=== PATIENT | female | born 1955 | race Caucasian/White ===

== ENCOUNTER → 2017-06-03 | Outpatient (CLI) | payer BC ==
--- NOTE | 2017-06-05 09:19 | MM ---
Reason for exam: screening (asymptomatic). Last mammogram was performed 1 year and 11 months ago. History: Patient is postmenopausal. Family history of premenopausal breast cancer in mother at age 50. Physical Findings: A clinical breast exam by your physician is recommended on an annual basis and results should be correlated with mammographic findings. MG 3D Screening Mammo W/Cad Bilateral CC and MLO view(s) were taken. Prior study comparison: June 21, 2015, bilateral MG screening mammo w CAD. April 16, 2014, bilateral MG screening mammo w CAD. There are scattered fibroglandular densities. No suspicious abnormality. No significant changes when compared with prior studies. ASSESSMENT: Negative, BI-RAD 1 RECOMMENDATION: Routine screening mammogram of both breasts in 1 year.
== END | disposition home or self-care (01) ==
LOC: RADMAMWWP 14:37
PROVIDERS: ATTEND Obstetrics & Gynecology
DX: Z12.31 Encounter for screening mammogram for malignant neoplasm of breast (principal); Z80.3 Family history of malignant neoplasm of breast
CPT/HCPCS: 77063; G0202

== ENCOUNTER → 2019-06-17 | Outpatient (CLI) | payer MEDICARE ==
--- NOTE | 2019-06-17 14:31 | BD ---
EXAMINATION TYPE: Axial Bone Density DATE OF EXAM: 06/17/2019 COMPARISON: 2010 CLINICAL HISTORY: M [age] Height: 5 FT 1 IN Weight: 118 FRAX RISK QUESTIONS: Alcohol (3 or more units per day): NO Family History (Parent hip fracture): NO Glucocorticoids (More than 3mos): NO (Ex: prednisone, prednisolone, methylprednisolone, dexamethasone, and hydrocortisone). History of Fracture in Adulthood: NO Secondary Osteoporosis: 1. Type 1 Diabetes: NO 2. Hyperthyroidism: NO 3. Menopause before 45: NO 4. Malnutrition: NO 5. Chronic liver disease: NO Rheumatoid Arthritis: NO Current Tobacco Use: NO RISK FACTORS HISTORY OF: Family History of Osteoporosis: NO Active: YES Postmenopausal woman: AGE 53 MEDICATIONS: Osteoporosis Medications: YES Which medication: FOSAMAX How Lon-2 YEARS Additional Medications: FOSAMAX, BLOOD PRESSURE MEDS Additional History: EXAM MEASUREMENTS: Bone mineral densitometry was performed using the [facility]. Bone mineral density as measured about the Lumbar spine is: ----- L1-L4(G/cm2): 0.884 T Score Values are as follows: ----- L2: -3.3 ----- L3: -3.4 ----- L4: -1.1 ----- L1-L4: -2.5 Bone mineral density has: DECREASED -8.7 % since study of: 2010 Bone mineral density about the R hip (g/cm2): 0.724 Bone mineral density about the L hip (g/cm2): 0.723 T Score values are as follows: -----R Neck: -2.3 -----L Neck: -2.3 -----R Total: -1.9 -----L Total: -1.9 Bone mineral density has: DECREASED -8.6 % since study of: 2010 IMPRESSION: Osteoporosis (T Score less than -2.5) with respect to the lumbar spine. There is increased fracture risk and therapy is usually indicated based on age. Re-Screen 1-2 years. NOTE: T-SCORE=SD OF THE YOUNG ADULT MEAN.
--- NOTE | 2019-06-19 12:17 | MM ---
Reason for exam: screening (asymptomatic). Last mammogram was performed 2 years ago. History: Patient is postmenopausal. Family history of premenopausal breast cancer in mother at age 50. Physical Findings: A clinical breast exam by your physician is recommended on an annual basis and results should be correlated with mammographic findings. MG 3D Screening Mammo W/Cad Bilateral CC and MLO view(s) were taken. Prior study comparison: June 03, 2017, bilateral MG 3d screening mammo w/cad. June 21, 2015, bilateral MG screening mammo w CAD. There are scattered fibroglandular densities. No significant changes when compared with prior studies. ASSESSMENT: Benign, BI-RAD 2 RECOMMENDATION: Routine screening mammogram of both breasts in 1 year.
== END | disposition home or self-care (01) ==
LOC: RADMAMWWP 11:49
PROVIDERS: ATTEND Internal Medicine Geriatric Medicine
DX: Z12.31 Encounter for screening mammogram for malignant neoplasm of breast (principal); M81.0 Age-related osteoporosis without current pathological fracture
CPT/HCPCS: 77063; 77067; 77080

== ENCOUNTER → 2020-10-04 | Outpatient (CLI) | payer MEDICARE ==
[2020-10-04 08:50] VITALS: BP 138/85; PULSE 71; RESP 18; TEMP 98.1
--- NOTE | 2020-10-04 09:47 | P.HPOB ---
History of Present Illness H&P Date: 10/04/20 Chief Complaint: The patient is here for her routine gynecologic exam. This is a 65-year-old with an LMP of 2009. The patient is here to establish with this office. It is been about 2-1/2 years since her last pelvic exam. She states she still does have some hot flashes but are not very bothersome. She denies any postmenopausal bleeding. She describes 3 episodes over the past year where she had pelvic pressure and the first time this happened in November 2019 she thought she may have had a UTI. She was treated for a UTI at an urgent care clinic at that time. She again developed some pressure in March 2020 and again 2 weeks ago. These episodes last for hours, but then seem to go away. She denies bladder pressure at this time. The episodes do not seem to be associated with activity and in fact tends to wake her up at night. Ring these episodes she denies dysuria or back pain. Review of Systems Weight has been stable. She denies respiratory, cardiac and G.I. problems. She denies maltreatment or problems with falling. : she denies any significant problems with urinary leakage. Also see HPI. Past Medical History Past Medical History: Hyperlipidemia Additional Past Medical History / Comment(s): Epiretinal eye disease. Osteoporosis(alendronate since 2018). Past VENDOR MANAGER history: HPV on a Pap smear in many years ago. No history of cervical dysplasia. History of Any Multi-Drug Resistant Organisms: None Reported Past Surgical History: Section Additional Past Surgical History / Comment(s): section 1. Eye surgery. Colonoscopy 2018(next after 10yr). Past Psychological History: No Psychological Hx Reported Smoking Status: Never smoker Past Alcohol Use History: Occasional (2 per month) Past Drug Use History: None Reported Additional History: She is . Her was diagnosed with renal cancer. - Past Family History Mother Family Medical History: AFIB, Cancer, Hypertension Additional Family Medical History / Comment(s): Breast cancer Father Additional Family Medical History / Comment(s): Benign pituitary gland tumor. Medications and Allergies Home Medications Medication Instructions Recorded Confirmed Type Alendronate Sodium [Fosamax] 70 mg PO WEEKLY 10/04/20 10/04/20 History Calcium Carbonate [Calcium] 600 mg PO DAILY 10/04/20 10/04/20 History Cranberry Fruit Extract [Cranberry] 200 mg PO DAILY 10/04/20 10/04/20 History Lutein 20 mg PO DAILY 10/04/20 10/04/20 History Menopautonic 1 tab PO DAILY 10/04/20 10/04/20 History Rosuvastatin [Crestor] 5 mg PO DAILY 10/04/20 10/04/20 History Ubiquinol [Co-Veratrol] 50 mg PO DAILY 10/04/20 10/04/20 History Allergies Allergy/AdvReac Type Severity Reaction Status Date / Time cephalexin [From Keflex] AdvReac Rash/Hives Unverified 10/04/20 08:42 sulfamethoxazole AdvReac Rash/Hives Unverified 10/04/20 08:42 [From Bactrim] trimethoprim [From Bactrim] AdvReac Rash/Hives Unverified 10/04/20 08:42 Exam Vital Signs Temp Pulse Resp BP Pulse Ox 10/04/20 08:47 98.1 F 71 18 138/85 100 Intake and Output 10/03/20 10/04/20 10/04/20 22:59 06:59 14:59 Other: Weight 53.977 kg Height 5 foot 1-1/2 inch, weight 119 pounds, BMI 22.1. This is a well-developed well-nourished white female who is alert and oriented times 3 in no acute distress. HEENT: Within normal limits. NECK: Supple without mass or thyromegaly. CHEST AND LUNGS: Clear to auscultation. HEART: Regular rate and rhythm. BREASTS: Are without mass or discharge. AXILLARY EXAM: Negative for adenopathy. BACK: Negative for CVA tenderness. ABDOMEN: Soft, nontender, without palpable masses. PELVIC EXAM: Normal external genitalia with mild atrophy. Cervix and vagina appear normal mild atrophy. There is no unusual discharge. There is no evidence of prolapse. The uterus is midposition, nongravid size and nontender. There are no palpable adnexal masses or tenderness. RECTAL EXAM: Rectovaginal exam is negative for mass or tenderness and is negative for occult blood. EXTREMITIES: Nontender. IMPRESSION: 1. 65-year-old menopausal female with normal gynecologic exam. 2. Infrequent episodes of bladder pressure which are brief and there are no current symptoms or significant physical findings at this time. Differential diagnosis will include bladder spasms, GI spasms, and less likely uterine fibroid or prolapse. 3. History of osteoporosis on Fosamax 2 years. PLAN: 1. Pap smear was performed. We will obtain records from Dr. Loera office for the last 10 years of Pap smears. We will then consider discontinuing Pap smears. 2. Self breast awareness was discussed with the patient. 3. Screening mammogram is scheduled for tomorrow. The order slip was given to the patient for this. 4. Osteoporosis prevention was discussed. I have stressed the importance of adequate calcium, vitamin D and regular exercise. Recommended amounts of calcium and vitamin D were also discussed. Bone density testing is scheduled for tomorrow and the order slip was given to the patient for this. 5. Since she is not currently having any bladder symptoms at this time, we will follow this conservatively. She was instructed to call she's having recurrent symptoms and at that time we can consider further evaluation and we can consider pelvic ultrasound at that time. 6. She did receive her flu vaccination last fall and has completed her Covid vaccination series. 7. The patient was advised to return in 1-2 years for her well woman examination and as needed.
== END ==
LOC: WWCWWP 08:24
PROVIDERS: ATTEND Obstetrics & Gynecology
DX: Z01.419 Encounter for gynecological examination (general) (routine) without abnormal findings (principal); E78.5 Hyperlipidemia, unspecified; M81.0 Age-related osteoporosis without current pathological fracture

== ENCOUNTER → 2020-10-05 | Outpatient (CLI) | payer MEDICARE ==
--- NOTE | 2020-10-06 07:53 | BD ---
EXAMINATION TYPE: Axial Bone Density DATE OF EXAM: 10/05/2020 COMPARISON: NONE CLINICAL HISTORY: Height: 5 FT 1 1/2 IN Weight: 119 FRAX RISK QUESTIONS: Alcohol (3 or more units per day): NO Family History (Parent hip fracture): NO Glucocorticoids (More than 3mos): NO (Ex: prednisone, prednisolone, methylprednisolone, dexamethasone, and hydrocortisone). History of Fracture in Adulthood: NO Secondary Osteoporosis: 1. Type 1 Diabetes: NO 2. Hyperthyroidism: NO 3. Menopause before 45: NO 4. Malnutrition: NO 5. Chronic liver disease: NO Rheumatoid Arthritis: NO Current Tobacco Use: NO RISK FACTORS HISTORY OF: Surgery to Spine/Hip(right/left)/Wrist (right/left): NO Family History of Osteoporosis: NO Active: YES Diet low in dairy products/other sources of calcium: NO Postmenopausal woman: AGE 53 Take estrogen and/or progesterone medications: NO Lost more than 2 inches in height since high school: NO MEDICATIONS: Osteoporosis Medications: YES Which medication: FOSAMAX How Lon-3 YEARS Additional Medications: FOSAMAX, STATIN, Additional History: EXAM MEASUREMENTS: Bone mineral densitometry was performed using the [employer]. Bone mineral density as measured about the Lumbar spine is: ----- L1-L4(G/cm2): 0.827 T Score Values are as follows: ----- L2: -3.3 ----- L3: -3.2 ----- L4: -2.5 ----- L1-L4: -2.9 Bone mineral density has: DECREASED -6.5 % since study of: 2018 Bone mineral density about the R hip (g/cm2): 0.674 Bone mineral density about the L hip (g/cm2): 0.698 T Score values are as follows: -----R Neck: -2.6 -----L Neck: -2.4 -----R Total: -2.0 -----L Total: -1.9 Bone mineral density has: DECREASED -1.3 % since study of: 2019 IMPRESSION: Osteoporosis NOTE: T-SCORE=SD OF THE YOUNG ADULT MEAN.
--- NOTE | 2020-10-06 14:29 | MM ---
Reason for exam: screening (asymptomatic). Last mammogram was performed 1 year and 4 months ago. History: Patient is postmenopausal. Family history of premenopausal breast cancer in mother at age 50. Physical Findings: A clinical breast exam by your physician is recommended on an annual basis and results should be correlated with mammographic findings. MG 3D Screening Mammo W/Cad Bilateral CC and MLO view(s) were taken. Prior study comparison: June 17, 2019, bilateral MG 3d screening mammo w/cad. June 03, 2017, bilateral MG 3d screening mammo w/cad. There are scattered fibroglandular densities. No significant changes when compared with prior studies. ASSESSMENT: Benign, BI-RAD 2 RECOMMENDATION: Routine screening mammogram of both breasts in 1 year.
== END | disposition home or self-care (01) ==
LOC: RADMAMWWP 14:56
PROVIDERS: ATTEND Internal Medicine Geriatric Medicine
DX: Z12.31 Encounter for screening mammogram for malignant neoplasm of breast (principal); M81.0 Age-related osteoporosis without current pathological fracture
CPT/HCPCS: 77063; 77067; 77080

== ENCOUNTER → 2022-03-31 | Outpatient (CLI) | payer MEDICARE ==
[2022-03-31 16:12] LABS: ALT 17 U/L (8-44); AST 26 U/L (13-35); African American GFR (CKD) 75.6 (60.0-200.0); Albumin 4.5 g/dL (3.8-4.9); Alkaline Phosphatase 77 U/L (41-126); BUN/Creat Ratio 16.78 Ratio (12.00-20.00); Blood Urea Nitrogen 15.1 mg/dL (9.0-27.0); Calcium 9.2 mg/dL (8.7-10.3); Carbon Dioxide 26.7 mmol/L (20.0-27.5); Chloride 99 mmol/L (96-109); Chol/HDL Ratio 3.45 Ratio; Globulin 2.5 g/dL (1.6-3.3); Glucose 85 mg/dL (70-110); LDL Cholesterol,Calculated 111.5 mg/dL (0.0-131.0); Non-African American GFR(CKD) 65.2 (60.0-200.0); Potassium 4.7 mmol/L (3.5-5.5); Sodium 135 mmol/L (135-145); VLDL Calculation 18.36 mg/dL (5.00-40.00)
== END | disposition home or self-care (01) ==
LOC: LABWHC1 08:27
PROVIDERS: ATTEND Internal Medicine Geriatric Medicine
DX: E78.2 Mixed hyperlipidemia (principal); R79.9 Abnormal finding of blood chemistry, unspecified
CPT/HCPCS: 36415; 80053; 80061; 83036

== ENCOUNTER → 2022-10-18 | Outpatient (CLI) | payer MEDICARE ==
--- NOTE | 2022-10-18 17:15 | BD ---
EXAMINATION TYPE: Axial Bone Density DATE OF EXAM: 10/18/2022 CLINICAL HISTORY: 67 years old Female. ICD-10 CODE: M81.0 AGE-RELATED OSTEOPOROSIS W/O CURRENT PATHO LO Height: 61.25 Weight: 123 FRAX RISK QUESTIONS: Alcohol (3 or more units per day): no Family History (Parent hip fracture): no Glucocorticoids (More than 3mos): no History of Fracture in Adulthood: no Secondary Osteoporosis: 1. Type 1 Diabetes: no 2. Hyperthyroidism: no 3. Menopause before 45: no 4. Malnutrition: no 5. Chronic liver disease: no Rheumatoid Arthritis: no Current Tobacco Use: no RISK FACTORS HISTORY OF: Hip Fracture (Right/Left): no Spine Fracture: no History of Wrist Fracture: no Surgery to Spine/Hip(right/left)/Wrist (right/left): no Family History of Osteoporosis: no Active: yes Diet low in dairy products/other sources of calcium: no Postmenopausal woman: yes Take estrogen and/or progesterone medications: no Lost more than 2 inches in height since high school: yes Frequent falls: no Poor Health: no Hyperparathyroidism: no Adrenal Insufficiency: no MEDICATIONS: Prednisone or other steroids: no Thyroid Medications:no Osteoporosis Medications: fosamax How Long: past 2 years Additional Medications: Cholesterol Meds, Calcium, Vit D, Additional History: EXAM MEASUREMENTS: Bone mineral densitometry was performed using the [employer] [facility]. Bone mineral density as measured about the Lumbar spine is: ----- L1-L4(G/cm2): 0.882 T Score Values are as follows: ----- L1: -2.9 ----- L2: -3.6 ----- L3: -1.2 ----- L4: -2.4 ----- L1-L4: -3.0 Z Score Values are as follows: ----- L1: -0.9 ----- L2: -1.6 ----- L3: -1.2 ----- L4: -0.4 ----- L1-L4: -1.0 Bone mineral density has: decreased -0.6 % since study of: 10/05/2020 Bone mineral density about the R hip (g/cm2): 0.754 Bone mineral density about the L hip (g/cm2): 0.774 T Score values are as follows: -----R Neck: -2.5 -----L Neck: -2.4 -----R Total: -2.0 -----L Total: -1.9 Z Score values are as follows: -----R Neck: -0.6 -----L Neck: -0.5 -----R Total: -0.4 -----L Total: -0.2 Bone mineral density has: increased 0.3 % since study of: 10/05/2020 FRAX%s: The graph provided illustrates a 13.8% chance for a major osteoporotic fx and a 3.5% chance f or the hips probability for fx in 10 years time. IMPRESSION: Osteoporosis (T Score less than -2.5). There is increased fracture risk and therapy is usually indicated based on age. Re-Screen 1-2 years. NOTE: T-SCORE=SD OF THE YOUNG ADULT MEAN.
== END | disposition home or self-care (01) ==
LOC: RADBDWWP 14:25
PROVIDERS: ATTEND Internal Medicine Geriatric Medicine
DX: M81.0 Age-related osteoporosis without current pathological fracture (principal); M85.89 Other specified disorders of bone density and structure, multiple sites
CPT/HCPCS: 77080

== ENCOUNTER → 2023-03-21 | Outpatient (CLI) | payer MEDICARE ==
--- NOTE | 2023-03-21 14:25 | XR ---
EXAM TYPE: LUMBAR SPINE X RAY SERIES COMPARISON: NONE HISTORY: Pain TECHNIQUE: 3 views are submitted. FINDINGS: Alignment is anatomic. The pedicles are intact. The transverse processes are intact. There is diff use osteopenia with multilevel moderate to severe degenerative disc disease most marked at L4-5 and L 5-S1. Severe facet arthropathy L4-5 and L5-S1 with bilateral foraminal impingement suspected. Grade 1 spondylolisthesis L4-L5. IMPRESSION: 1. Multilevel moderate to severe degenerative disc disease and facet arthropathy most marked at L4-5 and L5-S1 with suspected foraminal encroachment. Grade 1 anterolisthesis L4-L5.
--- NOTE | 2023-03-21 15:14 | XR ---
EXAMINATION TYPE: XR Hip Bilateral and AP pelvis DATE OF EXAM: 03/21/2023 COMPARISON: NONE HISTORY: Pain TECHNIQUE: A single AP view of the pelvis is obtained. Two views of the bilateral hip are obtained. FINDINGS: There is no acute fracture/dislocation evident in the pelvis. The sacroiliac joints and bilateral SI joint arthropathy.. The overlying soft tissue appears unremarkable. Vascular calcificat ions are noted. Two views of bilateral hip show no acute fracture or dislocation. No focal lytic or sclerotic lesion seen in the proximal bilateral femur. The overlying soft tissue is unremarkable. Mild narrowing of the joint space with hypertrophic changes in the acetabulum. IMPRESSION: 1. There is no acute fracture or dislocation in the pelvis or bilateral hip. 2. Mild hypertrophic arthropathy. Correlate for femoral acetabular impingement.
== END | disposition home or self-care (01) ==
LOC: RADXRMAIN 13:35
PROVIDERS: ATTEND Internal Medicine Geriatric Medicine
DX: M89.48 Other hypertrophic osteoarthropathy, other site (principal); M51.36 Other intervertebral disc degeneration, lumbar region; M47.817 Spondylosis without myelopathy or radiculopathy, lumbosacral region; M43.16 Spondylolisthesis, lumbar region; M25.551 Pain in right hip
CPT/HCPCS: 72100; 73521

== ENCOUNTER → 2023-04-04 | Outpatient (CLI) | payer MEDICARE ==
--- NOTE | 2023-04-04 14:53 | MR ---
EXAMINATION TYPE: MR lumbar spine wo con DATE OF EXAM: 04/04/2023 COMPARISON: None HISTORY: Possible degenerative disc disease and spinal stenosis TECHNIQUE: Multiplanar, multisequence images of the lumbar spine were acquired without IV contrast. L1-L2: There is mild decreased signal and loss of height noted with posterior disc bulge. Mild efface ment ventral thecal sac. There is no evidence of disc herniation or protrusion. No central stenosis i dentified. L2-L3: There is mild decreased signal and loss of height noted with posterior disc bulge. Mild efface ment ventral thecal sac. There is no evidence of disc herniation or protrusion. No central stenosis i dentified. L3-L4: There is mild decreased signal and loss of height noted with posterior disc bulge. Mild efface ment ventral thecal sac. There is no evidence of disc herniation or protrusion. No central stenosis i dentified. L4-L5: Severe degenerative disc disease at L4-5 with degenerative endplate marrow change. There is gr janie 1 anterolisthesis of 7.1 mm. Posterior disc bulge hypertrophy ligamentum flavum and moderate cent ral stenosis and bilateral foraminal encroachment. L5-S1: Severe disc desiccation with mild posterior disc bulge. No herniation or central stenosis. No foraminal encroachment. Lumbar segments are intact. No paraspinal masses are identified. Conus medullaris has a normal appe arance. IMPRESSION: 1. Degenerative disc disease as discussed. 2. Moderate central stenosis and degenerative changes at L4-5.
== END | disposition home or self-care (01) ==
LOC: RADMRIMAIN 13:07
PROVIDERS: ATTEND Internal Medicine Geriatric Medicine
DX: M51.36 Other intervertebral disc degeneration, lumbar region (principal); M48.07 Spinal stenosis, lumbosacral region; M47.816 Spondylosis without myelopathy or radiculopathy, lumbar region
CPT/HCPCS: 72148

== ENCOUNTER → 2023-10-15 | Outpatient (CLI) | payer MEDICARE ==
[2023-10-15 12:07] VITALS: BP 180/94; PULSE 63; RESP 17; TEMP 98.4
--- NOTE | 2023-10-15 12:25 | P.HPOB ---
History of Present Illness H&P Date: 10/15/23 Chief Complaint: the patient is here for her routine gynecologic exam. This is a 68-year-old with an LMP of 2009. The patient is without gynecologic complaints. Her PCP has been prescribing her alendronate for osteoporosis. He also ordered a bone density test which was done on 10/18/2022 and was stable. Review of Systems The patient's weight has been stable over the last year. She denies respiratory, cardiac, or G.I. problems. Past Medical History Past Medical History: Hyperlipidemia Additional Past Medical History / Comment(s): Epiretinal eye disease. Osteoporosis(alendronate since 2019). Degenerative disc disease and spinal stenosis. 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 No history of cervical dysplasia. History of Any Multi-Drug Resistant Organisms: None Reported Past Surgical History: Section Additional Past Surgical History / Comment(s): section 1. Eye surgery. Colonoscopy 2018(next after 10yr). Past Psychological History: No Psychological Hx Reported (PHQ-2 questionaire was given and she scores 0. This is a negative screen for depression.) Smoking Status: Never smoker Past Alcohol Use History: Occasional (2 drinks per month.) Past Drug Use History: None Reported Additional History: she is and is infrequently sexually active. - Past Family History Mother Family Medical History: AFIB, Cancer, Hypertension Additional Family Medical History / Comment(s): Breast cancer Father Additional Family Medical History / Comment(s): Benign pituitary gland tumor. Medications and Allergies Home Medications Medication Instructions Recorded Confirmed Type Alendronate Sodium [Fosamax] 70 mg PO WEEKLY 10/04/20 10/15/23 History Calcium Carbonate [Calcium] 600 mg PO DAILY 10/04/20 10/15/23 History Cranberry Fruit Extract [Cranberry] 200 mg PO DAILY 10/04/20 10/15/23 History Lutein 20 mg PO DAILY 10/04/20 10/15/23 History Menopautonic 1 tab PO DAILY 10/04/20 10/15/23 History Rosuvastatin [Crestor] 5 mg PO DAILY 10/04/20 10/15/23 History Ubiquinol [Co-Veratrol] 50 mg PO DAILY 10/04/20 10/15/23 History Allergies Allergy/AdvReac Type Severity Reaction Status Date / Time cephalexin [From Keflex] AdvReac Rash/Hives Unverified 10/15/23 11:34 sulfamethoxazole AdvReac Rash/Hives Unverified 10/15/23 11:34 [From Bactrim] trimethoprim [From Bactrim] AdvReac Rash/Hives Unverified 10/15/23 11:34 Exam Vital Signs Temp Pulse Resp BP Pulse Ox 10/15/23 11:35 98.4 F 63 17 180/94 97 Intake and Output 10/14/23 10/15/23 10/15/23 22:59 06:59 14:59 Other: Weight 54.431 kg height 5 feet 1 inch, weight 120 pounds, BMI 22.7. This is a well-developed well-nourished White female who is alert and oriented times 3 in no acute distress. HEENT: Within normal limits. NECK: Supple without mass or thyromegaly. CHEST AND LUNGS: Clear to auscultation. HEART: Regular rate and rhythm. BREASTS: Are without mass or discharge. AXILLARY EXAM: Negative for adenopathy. BACK: Negative for CVA tenderness. ABDOMEN: Soft, nontender, without palpable masses. PELVIC EXAM: Normal external genitalia with moderate atrophy. Cervix and vagina appear normal with moderate atrophy. There is no unusual discharge. There is no evidence of prolapse. The uterus is midposition, nongravid size and nontender. There are no palpable adnexal masses or tenderness. RECTAL EXAM: rectovaginal exam is negative for mass or tenderness and is negative for occult blood. EXTREMITIES: Nontender. IMPRESSION: 1. 76-year-old menopausal female with normal gynecologic exam. 2. history of osteoporosis and she has been on alendronate for about 4 years. PLAN: 1. Pap smears have been discontinued. 2. Self breast awareness was discussed with the patient. We have also discussed symptoms associated with inflammatory breast cancer. 3. screening mammogram will be due after 11/16/2023 and the order slip was given to the patient for this. 4. Osteoporosis management was discussed. I have stressed the importance of adequate calcium, vitamin D and regular exercise. Recommended amounts of calcium and vitamin D were also discussed. Her PCP has been prescribing the alendronate and she will discuss with her PCP if she should continue the alendronate and for how long. She will also continue to do bone density testing through her PCP as she did last year. 5. PHQ-2 questionaire was given and she scores 0. This is a negative screen for depression. 6. The patient was advised to return in 1-2 years for her well woman examination.
== END ==
LOC: WWCWWP 11:17
PROVIDERS: ATTEND Obstetrics & Gynecology
DX: Z01.419 Encounter for gynecological examination (general) (routine) without abnormal findings (principal)

== ENCOUNTER → 2023-12-13 | Outpatient (CLI) | payer MEDICARE ==
--- NOTE | 2023-12-16 09:35 | MM ---
Reason for Exam: Screening (asymptomatic). Last screening mammogram was performed 12 month(s) ago. Patient History: Menarche at age 11. First Full-Term at age 24. Postmenopausal. Mother had breast cancer, age 50. Risk Values: Natasha 5 year model risk: 3.4%. NCI Lifetime model risk: 9.7%. Prior Study Comparison: 10/05/2020 Bilateral Screening Mammogram, [facility]. 11/14/2021 Bilateral Screening Mammogram, [facility]. 11/15/2022 Bilateral MG 3D screening mammo w/cad, [facility]. Tissue Density: The breasts are almost entirely fatty. Findings: Analyzed By CAD. Right breast: There is no suspicious group of microcalcifications or new suspicious mass. Left breast: There is no suspicious group of microcalcifications or new suspicious mass. Overall Assessment: Negative, BI-RAD 1 Management: Screening Mammogram of both breasts in [address] [facility] will attempt to contact patient to return for supplemental views and ultrasound if indicated. Patient should continue monthly self-breast exams. A clinical breast exam by your physician is recommended on an annual basis. This exam should not preclude additional follow-up of suspicious palpable abnormalities. Note on Natasha scores and lifetime risk: 1. A Natasha score greater than 3% is considered moderate risk. If this is the case, consider specialist referral to assess eligibility for a risk reducing agent. 2. If overall lifetime risk for the development of breast cancer is 20% or higher, the patient may qualify for future screening with alternating mammogram and breast MRI. Electronically signed and approved by: Adonis Soria DO
== END | disposition home or self-care (01) ==
LOC: RADMAMWWP 08:57
PROVIDERS: ATTEND Internal Medicine Geriatric Medicine
DX: Z12.31 Encounter for screening mammogram for malignant neoplasm of breast (principal); Z78.0 Asymptomatic menopausal state; Z80.3 Family history of malignant neoplasm of breast
CPT/HCPCS: 77063; 77067

== ENCOUNTER → 2024-08-14 | Outpatient (CLI) | payer MEDICARE ==
[2024-08-14 14:56] LABS: HCT 46.4 % (37.2-46.3); HGB 14.5 g/dL (12.0-15.0); MCH 28.7 pg (27.0-32.0); MCHC 31.3 g/dL (32.0-37.0); MCV 91.9 FL (80.0-97.0); Mean Platelet Volume 8.5 FL (9.5-12.2); NRBC Per 100 WBC 0 X 10*3/uL (0.00-0.01); Platelet Count 342 X 10*3/uL (140-440); RBC 5.05 X 10*6/uL (4.10-5.20); RDW 12.1 % (11.5-14.5); WBC 5.82 X 10*3/uL (4.50-10.00)
[2024-08-14 15:20] LABS: ALT 17 U/L (8-44); AST 23 U/L (13-35); Albumin 4.5 g/dL (3.8-4.9); Albumin/Globulin Ratio 1.73 Ratio (1.60-3.17); Alkaline Phosphatase 96 U/L (41-126); BUN/Creat Ratio 18.38 Ratio (12.00-20.00); Blood Urea Nitrogen 14.7 mg/dL (9.0-27.0); Calcium 9.6 mg/dL (8.7-10.3); Carbon Dioxide 26.3 mmol/L (21.6-31.8); Chloride 103 mmol/L (96-109); Chol/HDL Ratio 3.25 Ratio; Creatine Kinase 73 U/L (26-186); Globulin 2.6 g/dL (1.6-3.3); Glucose 97 mg/dL (70-110); LDL Cholesterol,Calculated 102.1 mg/dL (0.0-131.0); Potassium 4.9 mmol/L (3.5-5.5); Sodium 140 mmol/L (135-145); Total Protein 7.1 g/dL (6.2-8.2); VLDL Calculation 19.68 mg/dL (5.00-40.00)
== END | disposition home or self-care (01) ==
LOC: LABWHC1 09:29
PROVIDERS: ATTEND Internal Medicine Geriatric Medicine
DX: Z00.00 Encounter for general adult medical examination without abnormal findings (principal); E78.2 Mixed hyperlipidemia; E55.9 Vitamin D deficiency, unspecified; R79.9 Abnormal finding of blood chemistry, unspecified
CPT/HCPCS: 36415; 80053; 80061; 82306; 82550; 83036; 84443; 85027

== ENCOUNTER → 2025-02-03 | Outpatient (CLI) | payer MEDICARE ==
[2025-02-03 16:19] LABS: ALT 21 U/L (8-44); AST 28 U/L (13-35); Albumin 4.4 g/dL (3.8-4.9); Albumin/Globulin Ratio 1.83 Ratio (1.60-3.17); Alkaline Phosphatase 89 U/L (41-126); Anion Gap 8.70 mmol/L (4.00-12.00); BUN/Creat Ratio 20.88 Ratio (12.00-20.00); Blood Urea Nitrogen 16.7 mg/dL (9.0-27.0); Calcium 9.1 mg/dL (8.7-10.3); Carbon Dioxide 27.3 mmol/L (21.6-31.8); Chloride 101 mmol/L (96-109); Cholesterol 175.00 mg/dL (0.00-200.00); Globulin 2.4 g/dL (1.6-3.3); Glucose 98 mg/dL (70-110); HDL Cholesterol 50.70 mg/dL (40.00-60.00); LDL Cholesterol,Calculated 103.3 mg/dL (0.0-131.0); Potassium 4.5 mmol/L (3.5-5.5); Sodium 137 mmol/L (135-145); Total Protein 6.8 g/dL (6.2-8.2); Triglycerides 105.00 mg/dL (0.00-149.00); VLDL Calculation 21.00 mg/dL (5.00-40.00)
== END | disposition home or self-care (01) ==
LOC: LABWHC1 08:19
PROVIDERS: ATTEND Internal Medicine Geriatric Medicine
DX: E78.2 Mixed hyperlipidemia (principal); M81.0 Age-related osteoporosis without current pathological fracture; R73.9 Hyperglycemia, unspecified
CPT/HCPCS: 36415; 80053; 80061; 82306; 83036

== ENCOUNTER → 2025-02-05 | Outpatient (CLI) | payer MEDICARE ==
--- NOTE | 2025-02-08 07:47 | BD ---
EXAMINATION TYPE: Axial Bone Density DATE OF EXAM: 02/05/2025 CLINICAL HISTORY: 69 years old Female. ICD-10 CODE: M81.0 BD , Additional History: Height: Weight: 121.8 FRAX RISK QUESTIONS: Alcohol (3 or more units per day): nono Family History (Parent hip fracture): no Glucocorticoids (More than 3mos): no (Ex: prednisone, prednisolone, methylprednisolone, dexamethasone, and hydrocortisone). History of Fracture in Adulthood: no Secondary Osteoporosis: no 1. Type 1 Diabetes: no 2. Hyperthyroidism: no 3. Menopause before 45: no 4. Malnutrition: no 5. Chronic liver disease: no Rheumatoid Arthritis: no Current Tobacco Use: no RISK FACTORS HISTORY OF: Surgery to Spine/Hip(right/left)/Wrist (right/left): no When: MEDICATIONS: Osteoporosis Medications: fosamax How Lon years EXAM MEASUREMENTS: Bone mineral densitometry was performed using the [employer] System. Bone mineral density as measured about the Lumbar spine is: ----- L1-L4(G/cm2): 0.848 T Score Values are as follows: ----- L1: -2.4 ----- L2: -2.5 ----- L3: -3.6 ----- L4: -2.3 ----- L1-L4: -2.8 Z Score Values are as follows: ----- L1: -0.3 ----- L2: -0.5 ----- L3: -1.6 ----- L4: -0.2 ----- L1-L4: -0.7 Bone mineral density has: increased 3.2 % since study of: 4. Bone mineral density about the R hip (g/cm2): 0.743 Bone mineral density about the L hip (g/cm2): 0.757 T Score values are as follows: -----R Neck: -2.4 -----L Neck: -2.4 -----R Total: -2.1 -----L Total: -2.0 Z Score values are as follows: -----R Neck: -0.5 -----L Neck: -0.4 -----R Total: -0.3 -----L Total: -0.2 Bone mineral density has: decreased -1.8 % since study of: 4.6.2022 FRAX%s: The graph provided illustrates a 14.5% chance for a major osteoporotic fx and a 4.0% chance f or the hips probability for fx in 10 years time. IMPRESSION: Osteoporosis (T Score less than -2.5). There is increased fracture risk and therapy is usually indicated based on age. Re-Screen 1-2 years. NOTE: T-SCORE=SD OF THE YOUNG ADULT MEAN. [facility], , 02/08/2025 7:44 AM
--- NOTE | 2025-02-08 08:04 | MM ---
Reason for Exam: Screening (asymptomatic). Last mammogram was performed 1 year(s) and 2 month(s) ago. Patient History: Menarche at age 11. First Full-Term at age 24. Postmenopausal. Mother had breast cancer, age 50. Risk Values: Natasha 5 year model risk: 3.4%. NCI Lifetime model risk: 9.3%. Prior Study Comparison: 11/14/2021 Bilateral Screening Mammogram, [facility]. 11/15/2022 Bilateral MG 3D screening mammo w/cad, [facility]. 12/13/2023 Bilateral MG 3D screening mammo w/cad, [facility]. Tissue Density: There are scattered areas of fibroglandular density. Findings: Analyzed By CAD. A mole along the medial inferior aspect of the left breast. There is no suspicious group of microcalcifications or new suspicious mass in either breast. Overall Assessment: Benign, BI-RAD 2 Management: Screening Mammogram of both breasts in 1 year. See note below in regards to the patient's increased 5 year Natasha score. Patient should continue monthly self-breast exams. A clinical breast exam by your physician is recommended on an annual basis. This exam should not preclude additional follow-up of suspicious palpable abnormalities. Note on Natasha scores and lifetime risk: 1. A Natasha score greater than 3% is considered moderate risk. If this is the case, consider specialist referral to assess eligibility for a risk reducing agent. 2. If overall lifetime risk for the development of breast cancer is 20% or higher, the patient may qualify for future screening with alternating mammogram and breast MRI. [facility], , 02/08/2025 8:01 AM. Electronically signed and approved by: Drea Casas M.D. Radiologist
== END | disposition home or self-care (01) ==
LOC: RADMAMWWP 16:17
PROVIDERS: ATTEND Internal Medicine Geriatric Medicine
DX: Z12.31 Encounter for screening mammogram for malignant neoplasm of breast (principal); M81.0 Age-related osteoporosis without current pathological fracture; R92.323 Mammographic fibroglandular density, bilateral breasts; Z78.0 Asymptomatic menopausal state; Z80.3 Family history of malignant neoplasm of breast
CPT/HCPCS: 77063; 77067; 77080